=== PATIENT | male | born 1955 | race Caucasian/White ===

== ENCOUNTER 2022-12-13 06:56 | Day surgery (SDC) | payer BC ==
[~2022-12-13] VITALS: Ht 167.6 cm; Wt 82.8 kg
[2022-12-13] MEDS ORDERED: HYDROmorphone 1 MG/ML INJ. CARTRIDGE IVP PRN (10:15)
[2022-12-13] MEDS ORDERED: ONDANSETRON HCL 4 MG/2 ML VIAL IVP PRN ×2 (10:15→11:45)
[2022-12-13] MEDS ORDERED: METOCLOPRAMIDE HCL 10 MG/2 ML VIAL IVP PRN (10:15)
[2022-12-13] MEDS ORDERED: IBUPROFEN 600 MG TABLET PO ONE (10:15)
[2022-12-13] MEDS ORDERED: KETOROLAC TROMETHAMINE 30 MG VIAL IVP PRN (10:15)
[2022-12-13] MEDS ORDERED: SEVOFLURANE 15 MIN GAS INH ONE (11:32)
[2022-12-13] MEDS ORDERED: ROCURONIUM BROMIDE 10 MG/ML (ZEMURON) ONE (11:32)
[2022-12-13] MEDS ORDERED: NEOSTIGMINE METHYLSULFATE 1 MG/ML, 10 ML VIAL ONE (11:32)
[2022-12-13] MEDS ORDERED: NS IRRIG SOLN 1000 ML IR ONE (11:32)
[2022-12-13] MEDS ORDERED: PROPOFOL 200MG/ 20ML VIAL (DIPRIVAN) IV ONE (11:32)
[2022-12-13] MEDS ORDERED: LR 1,000 ML IV.SOLN IV ONE (11:32)
[2022-12-13] MEDS ORDERED: OXYMETAZOLINE HCL 0.05% NASAL SPRAY NS ONE (11:32)
[2022-12-13] MEDS ORDERED: KETOROLAC TROMETHAMINE 30 MG VIAL ONE (11:32)
[2022-12-13] MEDS ORDERED: ONDANSETRON HCL 4 MG/2 ML VIAL ONE (11:32)
[2022-12-13] MEDS ORDERED: NS 1000 ML IV.SOLN IV ONE (11:32)
[2022-12-13] MEDS ORDERED: DEXAMETHASONE SOD PHOSPHATE 4 MG/ML VIAL ONE (11:32)
[2022-12-13] MEDS ORDERED: WATER FOR IRRIGATION,STERILE 1,000 ML IRRIG.SOLN IR ONE (11:32)
[2022-12-13] MEDS ORDERED: GLYCOPYRROLATE 0.2 MG/ML VIAL ONE (11:32)
[2022-12-13] MEDS ORDERED: LIDOCAINE/EPI 1% 1:100000 20 ML VIAL ONE (11:32)
[2022-12-13] MEDS ORDERED: SUCCINYLCHOLINE CHLORIDE 20 MG/ML(QUELICIN) ONE (11:32)
[2022-12-13] MEDS ORDERED: ONDANSETRON 4 MG ODT TAB PO PRN (11:45)
[2022-12-13] MEDS ORDERED: HYDROcodone/ACETAMIN 5-325 MG TAB (NORCO/ VICODIN) PO PRN (11:45)
[2022-12-13 14:25] VITALS: BP_SYST 148
== END 2022-12-13 13:55 | disposition home or self-care (01) ==
LOC: SDS 06:56 → SMU 06:57 → SDS 13:55
PROVIDERS: ATTEND Otolaryngology
DX: J34.2 Deviated nasal septum (principal); J34.3 Hypertrophy of nasal turbinates; I10 Essential (primary) hypertension; E78.5 Hyperlipidemia, unspecified; Z79.899 Other long term (current) drug therapy; Z20.822 Contact with and (suspected) exposure to COVID-19
CPT/HCPCS: 87081; 30520; 30140; 36415; 87426; J1100; J3490; J1885; J2405; J2704; J0330; J7120; J7030; J2710